=== PATIENT | female | born 1975 | race Caucasian/White ===

== ENCOUNTER 2021-01-28 02:04 | Emergency (ER) | payer MEDICAID ==
[2021-01-28 02:22] VITALS: BP 156/87
--- NOTE | 2021-01-28 02:43 | Emergency Department Report ---
ED General Adult HPI - General Chief complaint: Medical Clearance Stated complaint: WHOLE BODY SHAKY/SOB Source: patient Mode of arrival: Ambulatory Limitations: No Limitations - History of Present Illness Initial comments: pt is a 45 y/o aaf who presents for palpitations and shaking all over , " woke up with it, pt has hx of hypothyroid and HTN, pt rates her symptoms as 5/10 , symptoms are exacaerbated by stress, sympotms are relieved by resting. pt with nad a this time.j - Related Data Home Medications Medication Instructions Recorded Confirmed Last Taken Pnv Plus Multivit Tab 1 tab PO DAILY 03/01/16 03/02/16 1 Day Ago ~02/29/16 Allergies Allergy/AdvReac Type Severity Reaction Status Date / Time No Known Allergies Allergy Verified 10/17/15 01:08 ED Review of Systems ROS: Stated complaint: WHOLE BODY SHAKY/SOB Other details as noted in HPI Constitutional: denies: chills, fever Eyes: denies: eye pain, eye discharge, vision change ENT: denies: ear pain, throat pain Respiratory: denies: cough, shortness of breath, wheezing Cardiovascular: palpitations. denies: chest pain Endocrine: no symptoms reported Gastrointestinal: denies: abdominal pain, nausea, diarrhea Genitourinary: denies: urgency, dysuria, discharge Musculoskeletal: denies: back pain, joint swelling, arthralgia Skin: as per HPI Neurological: denies: headache, weakness, paresthesias Psychiatric: anxiety Hematological/Lymphatic: denies: easy bleeding, easy bruising ED Past Medical Hx - Past Medical History Previous Medical History?: No Hx Hypertension: No Hx Congestive Heart Failure: No Hx Diabetes: No Hx Deep Vein Thrombosis: No Hx Renal Disease: No Hx Sickle Cell Disease: No Hx Seizures: No Hx Asthma: No Hx COPD: No Hx HIV: No - Surgical History Past Surgical History?: No - Social History Smoking Status: Never Smoker Substance Use Type: None - Medications Home Medications: Home Medications Medication Instructions Recorded Confirmed Last Taken Type Pnv Plus Multivit Tab 1 tab PO DAILY 03/01/16 03/02/16 1 Day Ago History ~02/29/16 ED Physical Exam - General Limitations: No Limitations General appearance: alert, in no apparent distress - Head Head exam: Present: atraumatic, normocephalic - Eye Eye exam: Present: normal appearance, PERRL, EOMI Pupils: Present: normal accommodation - ENT ENT exam: Present: normal exam, normal orophraynx, mucous membranes moist, TM's normal bilaterally, normal external ear exam - Neck Neck exam: Present: normal inspection, tenderness, full ROM. Absent: meningismus, lymphadenopathy, thyromegaly - Respiratory Respiratory exam: Absent: normal lung sounds bilaterally, chest wall tenderness - Cardiovascular Cardiovascular Exam: Present: regular rate, normal rhythm, normal heart sounds. Absent: systolic murmur, diastolic murmur, rubs, gallop - GI/Abdominal GI/Abdominal exam: Present: soft, normal bowel sounds. Absent: distended, tenderness, guarding, rebound, rigid, mass, hernia - Rectal Rectal exam: Present: deferred - Extremities Exam Extremities exam: Present: normal inspection, full ROM, normal capillary refill. Absent: tenderness - Back Exam Back exam: Present: normal inspection, full ROM. Absent: tenderness, CVA tenderness (R), CVA tenderness (L) - Neurological Exam Neurological exam: Present: alert, oriented X3, CN II-XII intact, normal gait - Psychiatric Psychiatric exam: Present: normal affect, normal mood, anxious. Absent: depressed - Skin Skin exam: Present: warm, dry, intact, normal color ED Course Vital Signs 01/28/21 02:18 Temperature 97.8 F Pulse Rate 76 Respiratory 18 Rate Blood Pressure 156/87 O2 Sat by Pulse 98 Oximetry ED Medical Decision Making - Lab Data Result diagrams: 01/28/21 02:34 01/28/21 02:34 Labs 01/28/21 01/28/21 01/28/21 02:34 02:34 02:34 WBC 9.6 RBC 4.39 Hgb 13.0 Hct 38.7 MCV 88 MCH 30 MCHC 34 RDW 14.1 Plt Count 269 Lymph % (Auto) 28.0 [place] % (Auto) 7.5 H Eos % (Auto) 4.0 Baso % (Auto) 0.3 Lymph # (Auto) 2.7 [place] # (Auto) 0.7 Eos # (Auto) 0.4 Baso # (Auto) 0.0 Seg Neutrophils % 60.2 Seg Neutrophils # 5.8 Sodium 138 Potassium 4.6 Chloride 102.8 Carbon Dioxide 29 Anion Gap 11 BUN 10 Creatinine 0.7 Estimated GFR > 60 BUN/Creatinine Ratio 14 Glucose 97 Calcium 9.6 Total Bilirubin 0.20 AST 18 ALT 24 Alkaline Phosphatase 79 Total Protein 7.3 Albumin 4.1 Albumin/Globulin Ratio 1.3 TSH 5.290 H - Medical Decision Making Labs noted TSH 5.24 This is now treatable level. All symptoms are improved. Patient given referral to community psychiatry. Patient and family verbalized agreement and understanding of same patient is alert oriented x3 amatory with steady gait at this time with no acute distress. There is no SI or HI. Critical care attestation.: If time is entered above; I have spent that time in minutes in the direct care of this critically ill patient, excluding procedure time. ED Disposition Clinical Impression: Stress Disposition: DC-01 TO HOME OR SELFCARE Is pt being admited?: No Does the pt Need Aspirin: No Condition: Stable Forms: Work/School Release Form(ED) Time of Disposition: 05:04
[2021-01-28 03:09] LABS: Alanine Aminotransferase 24 units/L (7-56); Albumin 4.1 g/dL (3.9-5); Basophils % (Auto) 0.3 % (0.0-1.8); Blood Urea Nitrogen 10 mg/dL (7-17); Calcium 9.6 mg/dL (8.4-10.2); Eosinophils # (Auto) 0.4 K/mm3 (0.0-0.4); Hematocrit 38.7 % (30.3-42.9); Hemolysis Index 4; Lymphocytes # (Auto) 2.7 K/mm3 (1.2-5.4); Mean Corpuscular HGB Conc 34 % (30-34); Mean Corpuscular Volume 88 fl (79-97); Monocytes # (Auto) 0.7 K/mm3 (0.0-0.8); Monocytes % (Auto) 7.5 % (0.0-7.3); Platelet Count 269 K/mm3 (140-440); Red Blood Count 4.39 M/mm3 (3.65-5.03); Red Cell Distribution Width 14.1 % (13.2-15.2)
[2021-01-28 03:10] LABS: BUN/Creatinine Ratio 14
== END 2021-01-28 05:35 | disposition home or self-care (01) ==
LOC: ED 02:04
DX: F43.9 Reaction to severe stress, unspecified (principal); Z79.899 Other long term (current) drug therapy
CPT/HCPCS: 36415; 80053; 84443; 85025; 99283